=== PATIENT | female | born 1985 | race Hispanic/Latino ===

== ENCOUNTER 2021-03-29 16:03 | Emergency (ER) | payer OTHER | END 2021-03-29 16:52 | disposition home or self-care (01) | LOC: NAV ERS 16:03 | DX: S09.90XA Unspecified injury of head, initial encounter (principal); V59.9XXA Occupant (driver) (passenger) of pick-up truck or van injured in unspecified traffic accident, initial encounter; Z79.899 Other long term (current) drug therapy; Z79.84 Long term (current) use of oral hypoglycemic drugs; E11.9 Type 2 diabetes mellitus without complications | CPT/HCPCS: 99283 ==

== ENCOUNTER 2023-09-15 03:54 | Emergency (ER) | payer OTHER, SELFPAY ==
[2023-09-15] MEDS ORDERED: Ondansetron PF 4 MG/2 ML Vial ONE (04:27)
[2023-09-15] MEDS ORDERED: Morphine 4 MG/ML VIAL ONE (04:27)
[2023-09-15] MEDS ORDERED: Famotidine/PF 20 mg/2ml Vial ONE (04:27)
[2023-09-15] MEDS ORDERED: Sodium Chloride 0.9% 1,000 ML ONE (04:30)
[2023-09-15 04:37] LABS: #Basophils 0.1 thou/uL (0.0-0.2); #Eosinphils 0.2 thou/uL (0.0-0.7); #Lymphocytes 2.3 thou/uL (1.20-3.40); #Monocytes 0.7 thou/uL (0.11-0.59); #Neutrophils 5.5 thou/uL (1.40-6.50); %Basophils 1.4 % (0.0-1.0); %Eosinophils 2.7 % (0.0-10.0); %Lymphocytes 26.4 % (21.0-51.0); %Monocytes 7.7 % (0.0-10.0); %Neutrophils 61.8 % (42.0-75.0); Hematocrit 42.2 % (36.0-47.0); Hemoglobin 13.6 g/dL (12.0-16.0); Mean Corpuscular HGB CONC 32.1 g/dL (32.0-36.0); Mean Corpuscular Hemoglobin 28.7 pg (27.0-31.0); Mean Corpuscular Volume 89.3 fl (78.0-98.0); Mean Platelet Volume 13.5 fL (7.4-10.4); Platelet Count 134 10x3/uL (130-400); Red Blood Cell (RBC) Count 4.73 mill/uL (4.20-5.40); White Blood Cell (WBC) Count 8.8 10x3/uL (4.8-10.8)
[2023-09-15 04:40] LABS: ALT (SGPT) 21 U/L (8-55); AST (SGOT) 15 U/L (5-34); Albumin 4.3 g/dL (3.5-5.0); Alkaline Phosphatase 41 U/L (40-110); Anion Gap 15 mmol/L (10-20); BUN (Urea Nitrogen) 16 mg/dL (7.0-18.7); Bilirubin, Total 0.5 mg/dL (0.2-1.2); Calc. Creatinine Clearance 0 mL/min (70-130); Calcium 9.2 mg/dL (7.8-10.44); Carbon Dioxide 19 mmol/L (22-29); Chloride 107 mmol/L (98-107); Estimated GFR 99; Globulin 3.5 g/dL (2.4-3.5); Glucose 240 mg/dL (70-105); Lipase 36 U/L (8-78); Potassium 3.6 mmol/L (3.5-5.1); Protein, Total 7.8 g/dL (6.0-8.3); Sodium 137 mmol/L (136-145)
[2023-09-15 04:49] LABS: BHCG - Serum Negative (NEGATIVE); Pregs Control Bar Appear? YES (CONTROL BAR)
== END 2023-09-15 05:30 | disposition home or self-care (01) ==
LOC: NAV ERS 03:54
DX: R10.11 Right upper quadrant pain (principal); E11.9 Type 2 diabetes mellitus without complications; Z79.84 Long term (current) use of oral hypoglycemic drugs
CPT/HCPCS: 80053; 83690; 84703; 85025; 96361; 96374; 96375; J2270; J2405; J7050; S0028

== ENCOUNTER 2024-03-30 14:53 | Emergency (ER) | payer SELFPAY ==
[2024-03-30] MEDS ORDERED: Lidocaine 1% w/Epinephrine 1:100K 20 ML VIAL ONE (15:08)
[2024-03-30] MEDS ORDERED: Bacitracin 1 PK ONE (15:33)
== END 2024-03-30 15:43 | disposition home or self-care (01) ==
LOC: NAV ERS 14:53
DX: T83.69XA Infection and inflammatory reaction due to other prosthetic device, implant and graft in genital tract, initial encounter (principal); L03.114 Cellulitis of left upper limb; E11.9 Type 2 diabetes mellitus without complications
CPT/HCPCS: 10060